=== PATIENT | female | born 1985 | race Caucasian/White ===

== ENCOUNTER 2020-03-28 17:49 | Outpatient (CLI) | payer OTHER ==
[~2020-03-28] VITALS: Ht 179.1 cm; Wt 127.2 kg
[2020-03-28 17:56] VITALS: BP 128/69
== END 2020-03-28 18:46 | disposition home or self-care (01) ==
LOC: LDOP 17:49
PROVIDERS: ATTEND Obstetrics & Gynecology
DX: O36.8130 Decreased fetal movements, third trimester, not applicable or unspecified (principal); Z3A.30 30 weeks gestation of pregnancy
CPT/HCPCS: 59025; 99201; G0463

== ENCOUNTER 2020-05-25 06:22 | Outpatient (CLI) | payer OTHER ==
[~2020-05-25] VITALS: Ht 177.8 cm; Wt 131.3 kg
[2020-05-25 06:30] VITALS: BP 131/75
[2020-05-25] MEDS ORDERED: PREN-3 PO (06:35)
== END 2020-05-25 07:15 | disposition home or self-care (01) ==
LOC: LDOP 06:22
PROVIDERS: ATTEND Obstetrics & Gynecology
DX: O36.8130 Decreased fetal movements, third trimester, not applicable or unspecified (principal); Z3A.35 35 weeks gestation of pregnancy
CPT/HCPCS: 59025

== ENCOUNTER 2020-06-14 09:54 | Inpatient (IN) | payer OTHER ==
[~2020-06-14] VITALS: Ht 179.1 cm; Wt 134.5 kg
[~2020-06-14 09:54] MED LIST: PREN-3 PO
[2020-06-14] MEDS ORDERED: LIDOCAINE 1%, 20ML ONE (10:33)
[2020-06-14] MEDS ORDERED: MISOPROSTOL 200 MCG TABLET ONE (10:33)
[2020-06-14] MEDS ORDERED: OXYTOCIN 30U/ 0.9% NaCL 500ML 500 ML ONE (10:33)
[2020-06-14] MEDS ORDERED: NEWBORN KIT ONE (10:33)
[2020-06-14] MEDS ORDERED: OXYTOCIN 30U/ 0.9% NaCL 500ML 500 ML IV ONE (10:36)
[2020-06-14] MEDS: PLEASE ENTER HEIGHT AND WEIGHT MC SCH ×2 (10:42→18:42)
[2020-06-14 10:43] VITALS: BP 106/70
[2020-06-14] MEDS ORDERED: TERBUTALINE 1 MG/ML, 1ML SQ PRN (11:00)
[2020-06-14] MEDS ORDERED: TERBUTALINE 1 MG/ML, 1ML IVPush PRN (11:00)
[2020-06-14] MEDS ORDERED: ONDANSETRON 2MG/ML, 2ML IVPush PRN (11:00)
[2020-06-14] MEDS ORDERED: FENTANYL PF 100 MCG/2ML IV PRN (11:00)
[2020-06-14 11:09] LABS: BASOPHILS # (AUTO) 0.05 x10^3/uL (0-0.1); BASOPHILS % (AUTO) 0 % (0-1); EOSINOPHILS # (AUTO) 0.03 x10^3/uL (0-0.4); EOSINOPHILS % (AUTO) 0 % (1-7); LYMPHOCYTES # (AUTO) 1.61 x10^3/uL (1-3.4); LYMPHOCYTES % (AUTO) 13 % (22-44); MD NO; MEAN CORPUSCULAR HGB CONC 32.3 g/dL (32.4-35.8); MEAN CORPUSCULAR VOLUME 89.6 fL (80-100); MEAN PLATELET VOLUME 7.4 fL (7.4-10.4); MONOCYTES # (AUTO) 0.73 x10^3/uL (0.2-0.8); MONOCYTES % (AUTO) 6 % (2-9); NEUTROPHILS # (AUTO) 10.06 x10^3/uL (1.8-6.8); NEUTROPHILS % (AUTO) 81 % (42-75); PLATELET COUNT 271 x10^3/uL (130-400); RED BLOOD COUNT 3.88 x10^6/uL (3.82-5.3); RED CELL DISTRIBUTION WIDTH 13.5 % (9.6-15.2)
[2020-06-14] MEDS ORDERED: OXYTOCIN 30U/ 0.9% NaCL 500ML 500 ML IV PRN ×2 (11:11→19:41)
[2020-06-14] MEDS: LACTATED RINGERS 1,000 ML IV SCH ×3 (11:11→17:10)
[2020-06-14] MEDS ORDERED: PENICILLIN GK 5,000,000 UNITS in DEXTROSE 5% 100 ML IVPB ONE (11:30)
[2020-06-14] MEDS ORDERED: FENTANYL PF 100 MCG/2ML ONE ×2 (14:33→17:02)
[2020-06-14] MEDS: FENTANYL PF 100 MCG/2ML IVPush PRN ×2 (14:35→17:10)
[2020-06-14] MEDS: PENICILLIN GK 2,500,000 UNITS in DEXTROSE 5% 100 ML IVPB SCH ×2 (15:22→19:11)
[2020-06-14] MEDS ORDERED: FENTANYL/BUPIV./NS/PF 250 ML EPIDCONT ONE (17:15)
[2020-06-14] MEDS ORDERED: BUPIVACAINE 0.25% ONE (17:15)
[2020-06-14] MEDS ORDERED: LACTATED RINGERS 1,000 ML IV SCH (17:42)
[2020-06-14] MEDS ORDERED: FENTANYL/BUPIV./NS/PF 250 ML EPIDCONT SCH (17:42)
[2020-06-14] MEDS ORDERED: LACTATED RINGERS 1,000 ML IVBOLUS PRN (18:00)
[2020-06-14] MEDS ORDERED: EPHEDRINE 50 MG/ML, 1ML IVPush PRN (18:00)
[2020-06-14] MEDS: D5%-LACTATED RINGERS 1,000 ML IV SCH ×2 (18:36→20:57)
[2020-06-14 19:16] VITALS: BP 107/67
[2020-06-15] MEDS: PENICILLIN GK 2,500,000 UNITS in DEXTROSE 5% 100 ML IVPB SCH (00:04)
[2020-06-15] MEDS ORDERED: MISOPROSTOL 200 MCG TABLET PR PRN (02:00)
[2020-06-15] MEDS ORDERED: ONDANSETRON 2MG/ML, 2ML IV PRN (02:00)
[2020-06-15] MEDS ORDERED: OXYcodone/APAP 5/325MG TABLET PO PRN (02:00)
[2020-06-15] MEDS ORDERED: METHYLERGONOVINE 0.2 MG/ML IM PRN (02:00)
[2020-06-15] MEDS ORDERED: SIMETHICONE 80 MG CHEW TAB PO PRN (02:00)
[2020-06-15] MEDS ORDERED: OXYcodone IR 5MG TABLET PO PRN (02:00)
[2020-06-15] MEDS ORDERED: CALCIUM CARBONATE 500 MG TAB.CHEW PO PRN (02:00)
[2020-06-15] MEDS ORDERED: OXYTOCIN 30U/ 0.9% NaCL 500ML 500 ML ONE (02:39)
[2020-06-15] MEDS: OXYTOCIN 30U/ 0.9% NaCL 500ML 500 ML IV SCH ×3 (02:41→21:56)
[2020-06-15] MEDS ORDERED: IBUPROFEN 600 MG TABLET ONE (03:02)
[2020-06-15] MEDS: IBUPROFEN 600 MG TABLET PO PRN ×3 (03:07→20:04)
[2020-06-15 04:30] VITALS: BP 98/60
[2020-06-15] MEDS: PRENATAL VIT/IRON/FA 1 EACH TABLET PO SCH (08:27)
[2020-06-15] MEDS: DOCUSATE 100 MG CAPSULE PO PRN ×2 (08:27→20:04)
[2020-06-15 09:01] VITALS: BP 113/72
[2020-06-15 09:31] LABS: MEAN CORPUSCULAR HEMOGLOBIN 29.2 pg (27.0-34.8); MEAN CORPUSCULAR HGB CONC 32.3 g/dL (32.4-35.8); MEAN CORPUSCULAR VOLUME 90.3 fL (80-100); MEAN PLATELET VOLUME 7.3 fL (7.4-10.4); PLATELET COUNT 227 x10^3/uL (130-400); RED BLOOD COUNT 3.56 x10^6/uL (3.82-5.3); RED CELL DISTRIBUTION WIDTH 13.7 % (9.6-15.2)
[2020-06-15 10:05] LABS: BASOPHILS % (AUTO) 0 % (0-1); EOSINOPHILS # (AUTO) 0.04 x10^3/uL (0-0.4); EOSINOPHILS % (AUTO) 0 % (1-7); LYMPHOCYTES # (AUTO) 1.12 x10^3/uL (1-3.4); LYMPHOCYTES % (AUTO) 8 % (22-44); MD SCAN; MONOCYTES % (AUTO) 7 % (2-9); NEUTROPHILS # (AUTO) 12.74 x10^3/uL (1.8-6.8); NEUTROPHILS % (AUTO) 86 % (42-75)
[2020-06-15] MEDS ORDERED: MEASLES,MUMPS&RUBELLA VACC/PF 0.5 ML SQ-VACC ONE ×2 (11:42→13:30)
[2020-06-15 12:45] VITALS: BP 104/69
[2020-06-15 17:04] VITALS: BP 120/77
[2020-06-15 20:00] VITALS: BP 123/78
[2020-06-15] MEDS ORDERED: ACETAMINOPHEN 325 MG TABLET PO PRN ×2 (20:30)
[2020-06-16] VITALS: BP 125/83
[2020-06-16] MEDS: IBUPROFEN 600 MG TABLET PO PRN ×2 (02:02→09:20)
[2020-06-16] MEDS: OXYTOCIN 30U/ 0.9% NaCL 500ML 500 ML IV SCH (07:56)
[2020-06-16] MEDS: DOCUSATE 100 MG CAPSULE PO PRN (09:19)
[2020-06-16] MEDS: PRENATAL VIT/IRON/FA 1 EACH TABLET PO SCH (09:20)
[2020-06-16 10:00] VITALS: BP 124/80
[2020-06-16] MEDS ORDERED: IBUP-1222 PO (11:23)
== END 2020-06-16 14:03 | disposition home or self-care (01) | DRG 807 ==
LOC: LDOP 09:54 → LDIP 10:11 → 2NW 06-15 04:25
PROVIDERS: ADMIT Obstetrics & Gynecology; ATTEND Obstetrics & Gynecology
PROC: 10E0XZZ Delivery of Products of Conception, External Approach (ICD-10-PCS; principal; 2020-06-15)
PROC: 0KQM0ZZ Repair Perineum Muscle, Open Approach (ICD-10-PCS; 2020-06-15)
PROC: 3E0R3BZ Introduction of Anesthetic Agent into Spinal Canal, Percutaneous Approach (ICD-10-PCS; 2020-06-15)
PROC: 00HU33Z Insertion of Infusion Device into Spinal Canal, Percutaneous Approach (ICD-10-PCS; 2020-06-15)
PROC: 3E0234Z Introduction of Serum, Toxoid and Vaccine into Muscle, Percutaneous Approach (ICD-10-PCS; 2020-06-15)
DX: O99.824 Streptococcus B carrier state complicating childbirth (principal); Z37.0 Single live birth; O99.344 Other mental disorders complicating childbirth; F32.9 Major depressive disorder, single episode, unspecified; O77.0 Labor and delivery complicated by meconium in amniotic fluid; O99.284 Endocrine, nutritional and metabolic diseases complicating childbirth; E03.9 Hypothyroidism, unspecified; O33.9 Maternal care for disproportion, unspecified; O70.1 Second degree perineal laceration during delivery; Z3A.38 38 weeks gestation of pregnancy; Z80.41 Family history of malignant neoplasm of ovary; O26.893 Other specified pregnancy related conditions, third trimester; Z67.40 Type O blood, Rh positive
CPT/HCPCS: 36415; J7121; 85025; 85460; 86592; 86850; 86900; G0378; J2540; J2790; J3010; J2590; J7120